=== PATIENT | male | born 1955 | race Caucasian/White ===

== ENCOUNTER 2022-06-26 13:01 | Day surgery (SDC) | payer OTHER, SELFPAY ==
[2022-06-26] MEDS: LACTATED RINGERS 1,000 ML 100 ML IV (13:36)
[2022-06-26 13:37] VITALS: BP 144/93; PULSE 70; RESP 16; TEMP 36.1; O2SAT 97; BMI 22.8
--- NOTE | 2022-06-26 14:27 | P.HP_ITS ---
History of Present Illness History of Present Illness Date Patient Seen: 06/26/22 Time Patient Seen: 14:27 Chief complaint: SD Narrative: Here for colon cancer screening. His sister has a history of colon polyps [facility] Medical History Achilles rupture Atrial fibrillation Tachycardia Social History household members: spouse Smoking Status: Never smoker alcohol intake: current Meds Home Medications and Allergies Home Medications Medication Instructions Recorded Confirmed Type aspirin 81 mg tablet,delayed 81 mg PO 06/26/22 History release meloxicam 15 mg tablet 15 mg PO DAILY 06/26/22 06/26/22 History metoprolol tartrate 25 mg tablet 25 mg PO BID 06/26/22 06/26/22 History Allergies Allergy/AdvReac Type Severity Reaction Status Date / Time No Known Drug Allergies Allergy Verified 06/26/22 13:27 Review of Systems Review of Systems ROS: Yes All systems reviewed with the patient and are negative except as otherwise documented Exam Vital Signs (past 8 hours): - 06/26/22 13:37 Temperature 97 F L Pulse Rate 70 Respiratory Rate 16 Blood Pressure 144/93 H Pulse Oximetry 97 Oxygen Delivery Method Room Air Oxygen Delivery Method Room Air Const General: cooperative HENMT Head: normal to inspection Eyes General: appearance normal, both eyes and all related structures Neck Neck: normal visual inspection Chest Chest: normal inspection of the chest Resp Effort & Inspection: normal respiratory effort Cardio Rate: regular rate GI Inspection: normal to inspection Skin General: no rashes or lesions noted Neuro General: patient alert and patient awake Extrem General: normal to inspection and no pedal edema Psych Appearance: grossly normal Assessment & Plan Assessment & Plan narrative: 66-year-old male with family history of unknown histology colon polyps. Presents for colon cancer screening today. Colonoscopy is pursued.
--- NOTE | 2022-06-26 14:29 | PM.PREOP ---
Pre-operative Note Interval Note History & Physical reviewed/Exam performed by Physician: Yes Changes to H&P: No ASA Class (for procedural sedation): II
--- NOTE | 2022-06-26 14:55 | P.OP.COLON_ITS ---
Operative Date/Time/Diagnoses Date of procedure: 06/26/22 Time of procedure: 14:55 Pre-op diagnosis: Colon cancer screening Post-op diagnosis: same Procedure & Clinicians Study performed: Colonoscopy Same procedure as scheduled: Yes Indications: Colon cancer screening Surgeon: Chon Givens Procedure Notes SCOAP/Timeout: Done Procedure in detail: After the risks and benefits were explained, written and verbal informed consent was obtained. The patient was brought into the procedure room and placed into the left lateral decubitus position. Please see anesthesia notes for sedation details. Digital rectal examination was accomplished. The scope was introduced into the patient and advanced under direct visualization to the cecum as identified by the appendiceal orifice and ileocecal valve. The scope was slowly withdrawn to carefully examine the mucosa for any defects or lesions. Comprehensive imaging was accomplished throughout the rectum including the dentate line. The colon was decompressed, the scope was then removed from the patient who tolerated the procedure well. Pediatric colonoscope Bowel prep adequate Scope withdrawal time: 7 minutes Sedation minutes: 16 Specimen(s): none sent Impression: The patient had grade 2 internal hemorrhoids. No significant polyps mass les ions or inflammatory features identified throughout. Endoscopic diagnosis 1. Grade 2 hemorrhoids 2. Otherwise visually unremarkable colonoscopy Post-procedure Plan for aftercare: Repeat colonoscopy 10 years; sooner should symptoms warrant an earlier exam. Disposition: PACU
[2022-06-26 14:59] VITALS: BP 106/77; PULSE 76; RESP 18; TEMP 36.1; O2SAT 95
[2022-06-26 15:05] VITALS: BP 104/72; PULSE 68; RESP 16; O2SAT 95
[2022-06-26 15:09] VITALS: BP 101/71; PULSE 62; RESP 16; O2SAT 95
[2022-06-26 15:16] VITALS: BP 106/79; PULSE 75; RESP 14; O2SAT 100
== END 2022-06-26 15:43 | disposition home or self-care (01) ==
PROVIDERS: PCP Internal Medicine; Referring Provider Internal Medicine Gastroenterology; Visit Provider Internal Medicine Gastroenterology
PROC: 0DJD8ZZ Inspection of Lower Intestinal Tract, Via Natural or Artificial Opening Endoscopic (ICD-10-PCS; CPT 45378; principal; 2022-06-26 14:00)
DX: Z12.11 Encounter for screening for malignant neoplasm of colon (principal); Z83.71 Family history of colonic polyps; K64.1 Second degree hemorrhoids
CPT/HCPCS: 45378; J2704